=== PATIENT | female | born 1980 | race Caucasian/White ===

== ENCOUNTER 2017-02-18 09:00 | Outpatient (CLI) | payer OTHER ==
[~2017-02-18 09:00] MED LIST: THYRONORM PO
[2017-02-18 10:05] LABS: ALBUMIN 4.1 g/dL (3.4-5.0); ANION GAP 10.9 (8-16); CARBON DIOXIDE 26.3 mmol/L (21-32); CHOL/HDL RATIO 3.7 (1-4.5); CREATININE 0.9 mg/dL (0.6-1.3); POTASSIUM 4.2 mmol/L (3.5-5.1); THYROID STIMULATING HORMONE 0.99 uIU/mL (0.34-3.74); TOTAL BILIRUBIN 0.5 mg/dL (0.0-1.0)
== END 2017-02-18 20:00 | disposition home or self-care (01) ==
LOC: MLB 09:00
PROVIDERS: ATTEND Internal Medicine Geriatric Medicine
DX: D64.9 Anemia, unspecified (principal); E03.9 Hypothyroidism, unspecified; R73.03 Prediabetes
CPT/HCPCS: 36415; 80053; 83036; 84443

== ENCOUNTER 2017-02-28 18:19 | Outpatient (CLI) | payer OTHER ==
[2017-02-28 19:33] LABS: FREE T4 (FREE THYROXINE) 1.25 ng/dL (0.76-1.46); THYROID STIMULATING HORMONE 1.62 uIU/mL (0.34-3.74)
[2017-03-01 09:18] LABS: TRIIODOTHYRONINE 105 ng/dL (71-180); TRIIODOTHYRONINE FREE 3.1 pg/mL (2.0-4.4)
[2017-03-05 09:13] LABS: THYROID PEROXIDASE (TPO) AB >600 IU/mL (0-34)
== END 2017-02-28 20:07 | disposition home or self-care (01) ==
LOC: MLB 18:19
PROVIDERS: ATTEND Internal Medicine Geriatric Medicine
DX: E04.1 Nontoxic single thyroid nodule (principal); E55.9 Vitamin D deficiency, unspecified
CPT/HCPCS: 36415; 82306; 84439; 84443; 84480; 84481; 86376; 86800

== ENCOUNTER 2017-08-13 09:02 | Outpatient (CLI) | payer OTHER ==
[2017-08-13 09:59] LABS: BASOPHILS # (AUTO) 0.3 K/uL (0.00-0.22); BASOPHILS % (AUTO) 4.9 % (0.0-2.0); EOSINOPHILS # (AUTO) 0.1 K/uL (0-0.4); EOSINOPHILS % (AUTO) 2.1 % (0.0-4.0); HEMATOCRIT 35.6 % (36-48); HEMOGLOBIN 11.5 g/dL (12.0-16.0); LYMPHOCYTES # (AUTO) 1.3 K/uL (2.5-16.5); LYMPHOCYTES % (AUTO) 25.1 % (20.5-51.1); MEAN CORPUSCULAR HEMOGLOBIN 24 pg (27-31); MEAN CORPUSCULAR HGB CONC 32 g/dL (33-37); MEAN CORPUSCULAR VOLUME 75 fL (80-94); MONOCYTES # (AUTO) 0.4 K/uL (0.8-1.0); MONOCYTES % (AUTO) 8.1 % (1.7-9.3); NEUTROPHILS # (AUTO) 3.3 K/uL (1.8-7.7); NEUTROPHILS % (AUTO) 59.8 % (42.2-75.2); PLATELET COUNT (AUTO) 203 K/uL (140-450); RED BLOOD CELL COUNT(AUTO) 4.72 MIL/uL (4.20-5.40); RED CELL DISTRIBUTION WIDTH 14.8 % (11.6-13.7); WHITE BLOOD COUNT (AUTO) 5.4 K/uL (4.8-10.8)
[2017-08-13 10:40] LABS: ALBUMIN 4.1 g/dL (3.4-5.0); CARBON DIOXIDE 24.7 mmol/L (21-32); CHOL/HDL RATIO 3.8 (1-4.5); CREATININE 0.8 mg/dL (0.6-1.3); POTASSIUM 3.7 mmol/L (3.5-5.1); THYROID STIMULATING HORMONE 0.65 uIU/mL (0.34-3.74); TOTAL BILIRUBIN 0.4 mg/dL (0.0-1.0)
[2017-08-14 09:41] LABS: T4 FREE (DIRECT) 1.46 ng/dL (0.82-1.77)
[2017-08-14 20:22] LABS: THYROID PEROXIDASE (TPO) AB >600 IU/mL (0 - 34)
== END 2017-08-13 20:36 | disposition home or self-care (01) ==
LOC: MLB 09:02
PROVIDERS: ATTEND Internal Medicine Geriatric Medicine
DX: Z00.01 Encounter for general adult medical examination with abnormal findings (principal); M75.91 Shoulder lesion, unspecified, right shoulder; E03.9 Hypothyroidism, unspecified; E04.1 Nontoxic single thyroid nodule; E55.9 Vitamin D deficiency, unspecified
CPT/HCPCS: 36415; 73030; 80053; 82306; 84439; 84443; 85025; 86376; 86800

== ENCOUNTER 2017-09-04 10:55 | Outpatient (CLI) | payer OTHER | END 2017-09-04 21:10 | disposition home or self-care (01) | LOC: MRD 10:55 | PROVIDERS: ATTEND Internal Medicine Geriatric Medicine | DX: M54.9 Dorsalgia, unspecified (principal) | CPT/HCPCS: 72080 ==